=== PATIENT | male | born 1945 | race Caucasian/White ===

== ENCOUNTER 2017-05-04 10:02 | Emergency (ER) | payer MEDICARE, BC, SELFPAY ==
[2017-05-04 10:03] VITALS: BP 97/66; PULSE 67; RESP 16; TEMP 35.3; O2SAT 96; BMI 25.4
[2017-05-04 10:24] VITALS: BP 102/67; BP 106/69; BP 114/69; PULSE 58; PULSE 66; PULSE 70
[2017-05-04 10:55] LABS: Anion Gap 6 (5-15); BUN 16 mg/dL (7-18); BUN/Creat Ratio 13.2 RATIO (10-20); Calcium,Total 8.3 mg/dL (8.5-10.1); Chloride 104 mmol/L (98-107); Creatinine, Serum 1.21 mg/dL (0.70-1.30); EST Glomerular Filtration Rate 63 mL/min (>60); Est Glom Filt Rate - Afr Amer 76 mL/min (>60); Estimated Creatinine Clearance 54.96 ml/min; Glucose 101 mg/dL (74-106); Potassium 4.4 mmol/L (3.5-5.1); Sodium Level 140 mmol/L (136-145)
[2017-05-04 11:15] VITALS: BP 112/68; PULSE 66; RESP 19
--- NOTE | 2017-05-04 11:40 | ED.VISSUMM ---
- ER Visit Summary Date of Service: 05/04/17 Chief Complaint: Near syncope History of Present Illness: The patient is a 71 M who became lightheaded with a sensation of warmth, nausea and cold sweat. Rarely he was pale according to family. They did assess his blood pressure and his systolic was 76. His heart rate was low. He recently saw his PCP and was started on losartan 25 mg because of elevated blood pressure reading at the office. He denies nausea, vomiting diarrhea. He denies any double vision, blurred vision or loss of vision. He does report intermittent headache over the past week or so. He also states he had a viral illness flu. He denies any urologic symptoms. During my exit interview family reports that he has been taking cough syrup. Asked if he had a coughing spell prior to this and he states it was not bad. He denies black or maroon stool. He has no other complaints please read written note Physical Examination: Initial blood pressure was 97/66. Orthostatic vitals were obtained and are unremarkable. Most recent systolic pressure is 116. Head is atraumatic normocephalic. Pupils are equal round reactive. Extraocular muscles are intact. TMs are pearly white with landmarks noted. Nares patent with no drainage. Posterior pharynx without erythema or exudate. Uvula is midline. There is no dysphonia or dysphasia. Trachea is midline. There is no stridor with auscultation of the neck. Heart is regular without murmur, gallop or rub. S1 and S2 are normal. Lungs are clear to auscultation with good movement of air bilaterally. There is no asymmetry, swelling, discoloration, leg vein distention, palpable cords or tenderness along the distribution of the deep venous system. Neuro exam is nonfocal. Test Results: BMP is unremarkable. Orthostatic vital signs are negative. Emergency Department Course and Treatment: Presume this is a vasovagal response. However, in light of the fact that he is placed on a new antihypertensive meds and he does complain of lightheadedness will obtain orthostatic vital signs. Treatment Plan: Continue losartan at night and monitor blood pressure. If blood pressure is above 03/07/1939 recommend follow-up with Dr. Grove and may need smaller dose of losartan or a different hypertensive med. Disposition: Discharged home in stable improved condition with family Impression: 1. Vasovagal near syncopal episode 2. History of hypertension This note was generated with [employer] dictation software. It may contain incorrect words, spelling, and punctuation that were not noted in review of the chart prior to signing ED Disposition - Plan for ED Patient: Disposition: Home or Assisted Living Chief Complaint: Syncope Instructions: ED Syncope Vasovagal Referrals: Jacqueline Grove MD [Primary Care Provider] - 3-5 Days if not improving
[2017-05-04 11:54] VITALS: BP 105/69; PULSE 68; RESP 19; O2SAT 96
== END 2017-05-04 11:55 | disposition home or self-care (01) ==
PROVIDERS: Emergency Provider Emergency Medicine; Family Provider Internal Medicine; PCP Internal Medicine
DX: R55 Syncope and collapse (principal); I10 Essential (primary) hypertension; I25.10 Atherosclerotic heart disease of native coronary artery without angina pectoris; Z86.39 Personal history of other endocrine, nutritional and metabolic disease; Z79.82 Long term (current) use of aspirin; Z79.02 Long term (current) use of antithrombotics/antiplatelets; Z79.899 Other long term (current) drug therapy
CPT/HCPCS: 80048; 99285

== ENCOUNTER 2017-06-27 01:02 | Observation (INO) | payer MEDICARE, BC, SELFPAY ==
[2017-06-27] VITALS (7 sets, daily range): BP systolic 125–163; BP diastolic 80–94; PULSE 54–64; RESP 12–17; TEMP 36.4–36.9; O2SAT 94–99; BMI 27.9; BMI 27.3
--- NOTE | 2017-06-27 01:13 | EKG12_ITS ---
Test Reason : CP Blood Pressure : / mmHG Vent. Rate : 057 BPM Atrial Rate : 057 BPM P-R Int : 172 ms QRS Dur : 112 ms QT Int : 432 ms P-R-T Axes : 068 061 039 degrees QTc Int : 420 ms Poor data quality, interpretation may be adversely affected Sinus bradycardia Low voltage QRS (limb leads) Confirmed by JAZMINE KENT, MIGUEL ([id number]), map editor NEYDA PARSONS ([id number]) on 06/29/2017 10:34:43 AM Referred By: JOVANNY Confirmed By:MIGUEL LUCERO MD
[2017-06-27] MEDS: Aspirin 81 MG TAB.CHEW 324 MG PO (01:18)
--- NOTE | 2017-06-27 01:20 | RAD_ITS ---
STUDY: X-RAY CHEST REASON FOR EXAM: Male, 71 years old. Difficulty breathing, chest tightness. Elevated blood pressure. TECHNIQUE: AP portable chest. COMPARISON: November 08, 2011. FINDINGS: The lungs are clear and expanded. There is no demonstrated pleural abnormality. Normal size heart. Normal mediastinum and jeanine. Normal visualized pulmonary arteries. Normal visualized aortic arch and descending thoracic aorta. Normal visualized thoracic spine. Normal visualized ribs, clavicles, and shoulders. There is no demonstrated abnormality of the visualized soft tissue structures of the upper abdomen. RAD/Chest 1 View (Portable) IMPRESSION: Normal x-ray examination of the chest. Electronically Signed: Oliver Shabazz MD at 1:41 EDT , Service support ,
--- NOTE | 2017-06-27 01:25 | CT_ITS ---
STUDY: CT BRAIN WITHOUT CONTRAST REASON FOR EXAM: Male, 71 years old. Headache, elevated blood pressure, shortness of breath and chest pressure. RADIATION DOSAGE (If Supplied By Facility): CTDIvol = ( 44.99 ) mGy, DLP = ( 779.24 ) mGycm TECHNIQUE: Transaxial CT imaging of the brain was performed without administration of intravenous contrast material. Individualized dose optimization techniques were used for this CT. COMPARISON: None. FINDINGS: Normal soft tissue structures. Normal calvarium. Normal size ventricles and extra-axial spaces for the patient's age. Normal white matter tracts of the cerebral hemispheres. Normal basal ganglia and thalami. Normal brainstem. Normal cerebellum. There is no intracranial hemorrhage. There are no findings of an acute ischemic infarction. 0.8 cm mucous retention cyst medial wall right maxillary sinus. CT/Brain/Head without Contrast IMPRESSION: Normal unenhanced CT scan of the brain. Electronically Signed: Oliver Shabazz MD at 2:29 EDT , Service support ,
[2017-06-27 01:26] LABS: Absolute Neutrophil Count 5.3 X10^3/uL (2.0-7.7); Basophil# 0.03 X10^3/uL; Basophil% 0.4 % (0-1); Eosinophil# 0.44 X10^3/uL; Eosinophils% 5.3 % (0-5); Hematocrit 40.3 % (40-54); Hemoglobin 13.6 g/dl (13.0-16.5); Lymphocyte % 20.7 % (19-41); Mean Corp Hgb Conc 33.7 g/gl (32-36); Mean Corpuscular Hgb 33.1 pg (27.0-32.0); Mean Corpuscular Volume 98.1 fL (80-94); Mean Platelet Vol. 11.7 fl (6.2-12.0); Monocyte# 0.76 X10^3/uL; Monocyte% 9.2 % (0-10); Neutrophil # 5.29 X10^3/uL (2.7-7.7); Neutrophil % 64.3 % (47-70); Platelet Count 142 K/mm3 (150-450); RBC Distribution Width CV 12.9 % (11.6-14.6); RBC Distribution Width SD 45.4 fl (35.1-43.9); Red Blood Count 4.11 M/mm3 (4.6-6.2); White Blood Count 8.2 K/mm3 (4.4-11.0)
[2017-06-27] MEDS: Morphine 4 MG/ML Syringe IV (01:32)
[2017-06-27] MEDS: Ondansetron 4 MG/2 ML Vial IV (01:32)
[2017-06-27 01:33] LABS: POSITIVE COUNT NO; POSITIVE DIFFERENTIAL NO; POSITIVE MORPHOLOGY NO
[2017-06-27 01:39] LABS: Anion Gap 5 (5-15); BUN 16 mg/dL (7-18); BUN/Creat Ratio 15.7 RATIO (10-20); Calcium,Total 8.3 mg/dL (8.5-10.1); Chloride 109 mmol/L (98-107); Creatinine, Serum 1.02 mg/dL (0.70-1.30); EST Glomerular Filtration Rate 77 mL/min (>60); Est Glom Filt Rate - Afr Amer 93 mL/min (>60); Glucose 86 mg/dL (74-106); Potassium 3.7 mmol/L (3.5-5.1); Sodium Level 143 mmol/L (136-145)
--- NOTE | 2017-06-27 02:52 | ED.VISSUMM ---
- ER Visit Summary Date of Service: 06/27/17 Chief Complaint: Chest pain History of Present Illness: The patient is a 71 M presenting with intermittent chest pressure for the past 24 hours. He states currently it is 5 out of 10. He took a nitro at home which helped his symptoms. He has associated shortness of breath. He denies nausea, vomiting, diaphoresis. He also complains of intermittent head pressure as well. He has a history of hypertension, hypercholesterolemia. He has a history of 6 stents. His last stent was 5-6 years ago. Physical Examination: Vitals are stable. Patient is afebrile. Alert no acute distress. HEENT exam is unremarkable. Neck is supple. Lungs are clear and equal bilaterally. Heart is regular and bradycardic Abdomen is soft nontender nondistended. Extremities are unremarkable. Skin is warm and dry. No focal neurologic deficit. Remainder of exam is unremarkable. Emergency Department Course and Treatment: EKG is sinus bradycardia rate of 57 unchanged from previous. CBC, chemistries unremarkable other than platelets 142. Troponin is negative. Chest x-ray shows no acute process. CT head shows no acute process. He was given aspirin on arrival. He is given morphine Zofran with improvement of his pain. On repeat evaluation, he is resting comfortably. Discussed with the hospitalist for admission. Disposition: Admission Impression: Chest pain This note was generated with [employer] dictation software. It may contain incorrect words, spelling, and punctuation that were not noted in review of the chart prior to signing ED Disposition - Plan for ED Patient: Chief Complaint: Chest Pain Referrals: Jacqueline Grove MD [Primary Care Provider] -
--- NOTE | 2017-06-27 04:01 | HP.PCM_ITS ---
Problem List (1) Atypical chest pain Status: Acute (2) BPH (benign prostatic hyperplasia) Status: Chronic (3) CAD (coronary artery disease) Status: Chronic (4) Dyslipidemia Status: Chronic (5) Essential hypertension Status: Chronic History of Present Illness Date of Admission: 06/27/17 Chief Complaint: Chest pain for about 24 hours intermittent The patient is a 71 year old M with history of coronary artery disease status post 6 stent, last one 5-6 years ago and [facility], follows Dr. Garcia came to ER with intermittent chest pain for about 24 hours. Patient woke up in the middle of night along with chest pain and could not breathe, 1 day before yesterday and then he had chest pain intermittently yesterday during daytime. He denies near syncope or syncope or diaphoresis or palpitation. He has healthy lifestyle with no smoking and does horse riding. In ED, EKG shows sinus bradycardia at [address]-T changes. The patient was given IV morphine and Zofran in the ER. He also had mild headache and CT head was done which did not show acute process. [] Past Medical History Past Medical History (Chronic Problems): Chronic Problems BPH (benign prostatic hyperplasia) (Chronic) CAD (coronary artery disease) (Chronic) Essential hypertension (Chronic) Dyslipidemia (Chronic) Allergies Penicillins Allergy (Verified 06/27/17 01:08) Unknown Home Medications: Ambulatory Orders Medication Instructions Recorded Aspirin [Aspirin, Baby] 81 mg PO DAILY@0800 05/04/17 Clopidogrel Bisulfate [Plavix] 75 mg PO DAILY 05/04/17 Losartan Potassium [Cozaar] 25 mg PO DAILY 05/04/17 Tamsulosin HCl [Flomax] 0.4 mg PO DAILY 05/04/17 Co Q-10 06/27/17 Vitamin E 06/27/17 Smoking Status: Never smoker - *Family History Paternal History Items: No pertinent history Review of Systems Constitutional: Denies: Chills, Fever, Weight Change HEENT: Denies: Head Aches, Sinus Congestion, Sinus Drainage Cardiovascular: Reports: Chest Pressure. Denies: Chest Pain, Palpitations Respiratory: Reports: Shortness of Breath. Denies: Cough, Sputum production Gastrointestinal: Denies: Abdominal Pain, Nausea, Vomiting Genitourinary: Denies: Dysuria Musculoskeletal: Denies: Joint Pain, Joint Tenderness Skin: Denies: Rash, Wounds Neurological: Denies: Numbness, Tingling, Focal weakness Psychiatric: Denies: Anxiety, Depression, Homicidal Ideations, Suicidal Ideations Hematologic/ Lymphatic: Denies: Easy Bruising, Easy Bleeding VTE Information - Inpt Only VTE Present on Admission: No VTE Mechan Device Prophylaxis: SCD's VTE Pharm Prophylaxis ordered?: Yes Patient Problems: Active and Suspected Problems Atypical chest pain (Acute) - Physical Exam General: Alert, Oriented x3, Cooperative HEENT: Atraumatic, PERRLA, EOMI, Normocephalic Neck: Supple, No JVD, Negative Carotid Bruits Lungs: Clear to auscultation, Normal air movement, No rhonchi, No wheeze, No rales Cardiovascular: Regular rate, Regular Rhythm, Normal S1, Normal S2, No murmurs Abdomen: Bowel Sounds Present, Soft, Non Tender, Non-Distended Extremities: No edema, Capillary Refill Less than 3 Seconds Skin: No rashes, No breakdown Musculoskeletal: No Tenderness to Palpation of Joints or Extremities Neurological: Cranial nerves II-XII grossly intact Psych/Mental Status: Normal Affect, Appropriate Vital Signs Temp Pulse Resp BP Pulse Ox 97.7 F L 54 L 17 126/84 H 95 06/27/17 01:05 06/27/17 03:47 06/27/17 03:47 06/27/17 03:47 06/27/17 03:47 Oxygen Flow Rate (L/min) 2 Oxygen Delivery Method Nasal Cannula Weight: 183 lb 10.321 oz Body Mass Index (BMI) 27.9 Laboratory Tests Past 24 Hrs 06/27/17 06/27/17 01:05 01:05 WBC 8.2 RBC 4.11 L Hgb 13.6 Hct 40.3 MCV 98.1 H MCH 33.1 H MCHC 33.7 RDW 12.9 RDW Differential 45.4 H Plt Count 142 L MPV 11.7 Immature Gran % (Auto) 0.100 Neut % (Auto) 64.3 Lymph % (Auto) 20.7 [place] % (Auto) 9.2 Eos % (Auto) 5.3 H Baso % (Auto) 0.4 Absolute Neuts (auto) 5.3 Absolute Lymphs (auto) 1.70 Total Counted Not Reportable Sodium 143 Potassium 3.7 Chloride 109 H Carbon Dioxide 29.0 Anion Gap 5 BUN 16 Creatinine 1.02 Estim Creat Clear Calc 65.20 Est GFR (MDRD) Af Amer 93 Est GFR (MDRD) Non-Af 77 BUN/Creatinine Ratio 15.7 Glucose 86 Calcium 8.3 L Troponin I < 0.015 Assessment/Plan Active and Suspected Problems Atypical chest pain (Acute) The patient is a 71 year old M with history of coronary artery disease status post 6 stent, last one 5-6 years ago and [facility], follows Dr. Garcia came to ER with intermittent chest pressure for about 24 hours, localized with no radiation. Patient woke up in the middle of night along with chest pain and could not breathe, 1 day before yesterday and then he had chest pain intermittently yesterday during daytime. He denies near syncope or syncope or diaphoresis or palpitation. He has healthy lifestyle with no smoking and does horse riding. In ED, EKG shows sinus bradycardia at [address]-T changes. First troponin negative. The patient was given IV morphine and Zofran in the ER. He also had mild headache and CT head was done which did not show acute process. 1. Atypical chest pain, possible unstable angina: Patient JORDON risk is 4. Continue aspirin and Plavix. Currently patient chest pain is resolved. Repeat EKG. On ACS protocol with serial cardiac enzymes. If serial troponin enzymes are negative, can have treadmill nuclear stress test. If troponins are positive , can consult shop router. 2. Coronary artery disease status post 6 stent: Patient is on aspirin, Plavix and losartan. I would not start beta-anna as patient has sinus bradycardia. 3. Other comorbidities include hypertension, dyslipidemia, BPH: Home medication reconciliation done. As per the blood pressure at home was high systolic blood pressure 170. In the ER his blood pressure is 126/74. DVT prophylaxis: On heparin 5000 units subcutaneous twice daily and bilateral SCDs Code Visit OBSV E&M: 51271 Initial observation care L3
--- NOTE | 2017-06-27 05:55 | EKG12_ITS ---
Test Reason : AM EKG Blood Pressure : / mmHG Vent. Rate : 055 BPM Atrial Rate : 055 BPM P-R Int : 172 ms QRS Dur : 114 ms QT Int : 438 ms P-R-T Axes : 062 058 040 degrees QTc Int : 419 ms Sinus bradycardia Otherwise normal ECG Confirmed by JAZMINE KENT, MIGUEL ([id number]), associate editor NEYDA PARSONS ([id number]) on 07/04/2017 3:29:09 PM Referred By: BUZZ Confirmed By:MIGUEL LUCERO MD
[2017-06-27] MEDS: Clopidogrel Bisulfate 75 MG Tablet PO (06:04)
[2017-06-27] MEDS: Losartan Potassium 25 MG Tablet PO (06:04)
[2017-06-27 07:59] LABS: Absolute Lymphocyte Count 1.31 X10^3/ul (0.83-4.51); Absolute Neutrophil Count 3.4 X10^3/uL (2.0-7.7); Basophil# 0.03 X10^3/uL; Basophil% 0.5 % (0-1); Eosinophil# 0.37 X10^3/uL; Eosinophils% 6.5 % (0-5); Hematocrit 37.5 % (40-54); Hemoglobin 12.6 g/dl (13.0-16.5); Lymphocyte # 1.31 X10^3/ul (4.0); Mean Corp Hgb Conc 33.6 g/gl (32-36); Mean Corpuscular Hgb 33.1 pg (27.0-32.0); Mean Corpuscular Volume 98.4 fL (80-94); Mean Platelet Vol. 11.7 fl (6.2-12.0); Monocyte# 0.58 X10^3/uL; Monocyte% 10.2 % (0-10); Neutrophil # 3.39 X10^3/uL (2.7-7.7); Neutrophil % 59.6 % (47-70); POSITIVE COUNT NO; POSITIVE DIFFERENTIAL NO; POSITIVE MORPHOLOGY NO; Platelet Count 119 K/mm3 (150-450); RBC Distribution Width CV 13.1 % (11.6-14.6); RBC Distribution Width SD 45.9 fl (35.1-43.9); Red Blood Count 3.81 M/mm3 (4.6-6.2); White Blood Count 5.7 K/mm3 (4.4-11.0)
[2017-06-27 08:21] LABS: Anion Gap 3 (5-15); BUN 13 mg/dL (7-18); Chloride 112 mmol/L (98-107); Cholesterol 109 mg/dL (200); Creatinine, Serum 0.93 mg/dL (0.70-1.30); EST Glomerular Filtration Rate 86 mL/min (>60); Est Glom Filt Rate - Afr Amer 104 mL/min (>60); Estimated Creatinine Clearance 71.51 ml/min; Glucose 86 mg/dL (74-106); High Density Lipoprotein 34 mg/dL; Magnesium 2.3 mg/dL (1.6-2.6); Potassium 4.3 mmol/L (3.5-5.1); Sodium Level 143 mmol/L (136-145); Thyroid Stim Hormone (TSH) 6.91 uIU/mL (0.358-3.74); Triglycerides 87 mg/dL; Very Low Density Lipoprotein 17 mg/dL (5-40)
[2017-06-27 08:46] LABS: International Normalized Ratio 1.2; Prothrombin Time (Protime)PT. 14.7 SECONDS (11.7-14.9)
[2017-06-27 08:47] LABS: Partial Thromboplast Time 29.4 Seconds (24.1-36.2)
--- NOTE | 2017-06-27 10:23 | PCM.DC ---
- Discharge Diagnoses Current Active Problems: Current Active and Chronic Problems Atypical chest pain (Acute) BPH (benign prostatic hyperplasia) (Chronic) You will use the following diet at home:: Cardiac - <2 g sodium daily Your food should be the consistency of: Regular Your liquids should be the consistency of: Regular/Thin Discharge Activity: Return to Normal Activity Allergies/Adverse Reactions: Allergies Penicillins Allergy (Verified 06/27/17 01:08) Unknown Medications to take at Discharge Aspirin [Aspirin, Baby] 81 mg PO DAILY@0800 05/04/17 Clopidogrel Bisulfate [Plavix] 75 mg PO DAILY 05/04/17 Losartan Potassium [Cozaar] 25 mg PO DAILY 05/04/17 Tamsulosin HCl [Flomax] 0.4 mg PO DAILY 05/04/17 Co Q-10 06/27/17 Metoprolol Bajwa/Hydrochlorothiaz [Dutoprol 25-12.5 mg Tablet] 1 each PO 06/27/17 Pravastatin [Pravachol] 20 mg PO QHS 06/27/17 Vitamin E 06/27/17 Vitamin E 1,200 unit PO 06/27/17 Primary Care Physician: Jacqueline Grove MD [Primary Care Provider] - Please follow up with your Primary Care Physician in: 2 weeks Please Follow Up With: Cole Jewell MD When: 1 week Proposed Discharge Date: 06/27/17
--- NOTE | 2017-06-27 10:25 | PCM.DC.SUM ---
Discharge Date and Diagnosis - Problem List Patient Problems: Active and Suspected Problems Atypical chest pain (Acute) Date of Admission: 06/27/17 Date of Discharge: 06/27/17 - Primary Discharge Diagnosis Active and Suspected Problems Atypical chest pain - musculoskeletal CAD - s/p 6 stents Mild thrombocytopenia GERD HLD HTN BPH - Secondary Discharge Diagnosis Chronic Problems BPH (benign prostatic hyperplasia) (Chronic) CAD (coronary artery disease) (Chronic) Essential hypertension (Chronic) Dyslipidemia (Chronic) Hospital Course and Treatment Imaging Results: 06/27/17 05:55 Nuclear Stress Test - Treadmil [NM] AM (NON MEDS) Operations: None Procedures: None Summary of Care Provided: Physical exam on day of discharge: General: Resting comfortably NAD Psych: A/Ox3 normal affect HEENT: PEARRLA AT NC Neck: Supple NT CV: RRR no m/t/r/g/h Resp: CTA Abd: [id number] Soft NT no guarding or rigidity Ext: DP2+= no edema Skin: W/D normal turgor Lymph/Heme: No active bleeding or adenopathy Neuro: CN2-12 intact Hospital course: The patient is a 71 year old M with a hx of CAD with 6 stents prior 6 years ago, pt of Dr. Jewell, hx HLD, HTN, BPH, who presented to the ER with intermittent chest pain over 24 hours. This began while he was sleeping, described as a midsternal tightness with SOB that would come and go for several minutes, no syncope, LH, palpitation, diaphoresis, nausea, or vomiting. He had a negative EKG, neg troponin, negative CXR, negative CT brain. He was admitted to the PCU and placed on cardiac monitoring. He had no events on tele overnight. Trop negative x 3. TSH was elevated, T4 is pending at this time. LDL was at goal - 58. Vital signs are stable. He refused a stress test the next morning and stated that he wanted to go see the [facility] instead as he had his workup in the past there, and that he had been told in the past that a stress test was not a good test and would not be helpful. As he had relief overnight of his chest pain, and he had negative workup otherwise, and continued to refuse a stress test, he was discharged home in stable condition, and was advised to follow up with his PCP and his own comparative sociology professor, Dr. Jewell. This patient was seen by Tyler Rivera PA-C under the supervision of Doctor Scooter. [] Discharge Diet: Low fat/ Low Cholesterol, 2000 mg Sodium Diet Discharge Activity: Return to Normal Activity Home Medications: Medications to take at Discharge Aspirin [Aspirin, Baby] 81 mg PO DAILY@0800 05/04/17 Clopidogrel Bisulfate [Plavix] 75 mg PO DAILY 05/04/17 Losartan Potassium [Cozaar] 25 mg PO DAILY 05/04/17 Tamsulosin HCl [Flomax] 0.4 mg PO DAILY 05/04/17 Co Q-10 06/27/17 Metoprolol Bajwa/Hydrochlorothiaz [Dutoprol 25-12.5 mg Tablet] 1 each PO 06/27/17 Pravastatin [Pravachol] 20 mg PO QHS 06/27/17 Vitamin E 06/27/17 Vitamin E 1,200 unit PO 06/27/17 Primary Care Physician: Jacqueline Grove MD [Primary Care Provider] - Please follow up with your Primary Care Physician in: 2 weeks Please Follow Up With: Cole Jewell MD When: 1 week Medical Necessity - Tobacco Use Smoking Status: Never smoker Meaningful Use Info Meaningful Use Diagnoses (Choose all that apply): None applicable
[2017-06-27 10:35] LABS: T4 Free Direct 0.74 ng/dL (0.76-1.46)
--- NOTE | 2017-06-27 10:36 | DS.PCM_ITS ---
Discharge Date and Diagnosis - Problem List Patient Problems: Active and Suspected Problems Atypical chest pain (Acute) Date of Admission: 06/27/17 Date of Discharge: 06/27/17 - Primary Discharge Diagnosis Active and Suspected Problems Atypical chest pain - musculoskeletal CAD - s/p 6 stents Mild thrombocytopenia GERD HLD HTN BPH - Secondary Discharge Diagnosis Chronic Problems BPH (benign prostatic hyperplasia) (Chronic) CAD (coronary artery disease) (Chronic) Essential hypertension (Chronic) Dyslipidemia (Chronic) Hospital Course and Treatment Imaging Results: 06/27/17 05:55 Nuclear Stress Test - Treadmil [NM] AM (NON MEDS) Operations: None Procedures: None Summary of Care Provided: Physical exam on day of discharge: General: Resting comfortably NAD Psych: A/Ox3 normal affect HEENT: PEARRLA AT NC Neck: Supple NT CV: RRR no m/t/r/g/h Resp: CTA Abd: [id number] Soft NT no guarding or rigidity Ext: DP2+= no edema Skin: W/D normal turgor Lymph/Heme: No active bleeding or adenopathy Neuro: CN2-12 intact Hospital course: The patient is a 71 year old M with a hx of CAD with 6 stents prior 6 years ago , pt of Dr. Jewell, hx HLD, HTN, BPH, who presented to the ER with intermittent chest pain over 24 hours. This began while he was sleeping, described as a midsternal tightness with SOB that would come and go for several minutes, no syncope, LH, palpitation, diaphoresis, nausea, or vomiting. He had a negative EKG, neg troponin, negative CXR, negative CT brain. He was admitted to the PCU and placed on cardiac monitoring. He had no events on tele overnight. Trop negative x 3. TSH was elevated, T4 is pending at this time. LDL was at goal - 58. Vital signs are stable. He refused a stress test the next morning and stated that he wanted to go see the [facility] instead as he had his workup in the past there, and that he had been told in the past that a stress test was not a good test and would not be helpful. As he had relief overnight of his chest pain, and he had negative workup otherwise, and continued to refuse a stress test, he was discharged home in stable condition, and was advised to follow up with his PCP and his own cut press operator, Dr. Jewell. This patient was seen by Tyler Rivera PA-C under the supervision of Doctor Scooter. [] Discharge Diet: Low fat/ Low Cholesterol, 2000 mg Sodium Diet Discharge Activity: Return to Normal Activity Home Medications: Medications to take at Discharge Aspirin [Aspirin, Baby] 81 mg PO DAILY@0800 05/04/17 Clopidogrel Bisulfate [Plavix] 75 mg PO DAILY 05/04/17 Losartan Potassium [Cozaar] 25 mg PO DAILY 05/04/17 Tamsulosin HCl [Flomax] 0.4 mg PO DAILY 05/04/17 Co Q-10 06/27/17 Metoprolol Bajwa/Hydrochlorothiaz [Dutoprol 25-12.5 mg Tablet] 1 each PO 06/27/17 Pravastatin [Pravachol] 20 mg PO QHS 06/27/17 Vitamin E 06/27/17 Vitamin E 1,200 unit PO 06/27/17 Primary Care Physician: Jacqueline Grove MD [Primary Care Provider] - Please follow up with your Primary Care Physician in: 2 weeks Please Follow Up With: Cole Jewell MD When: 1 week Medical Necessity - Tobacco Use Smoking Status: Never smoker Meaningful Use Info Meaningful Use Diagnoses (Choose all that apply): None applicable
== END 2017-06-27 10:25 | disposition home or self-care (01) ==
LOC: ED 03:22 → PCU 03:40
PROVIDERS: Physician Assistant; Admitting Provider Internal Medicine; Emergency Provider Emergency Medicine; Family Provider Internal Medicine; PCP Internal Medicine; Visit Provider Internal Medicine
DX: R07.89 Other chest pain (principal); R06.02 Shortness of breath; R00.1 Bradycardia, unspecified; N40.0 Benign prostatic hyperplasia without lower urinary tract symptoms; I25.10 Atherosclerotic heart disease of native coronary artery without angina pectoris; E78.5 Hyperlipidemia, unspecified; I10 Essential (primary) hypertension; Z95.5 Presence of coronary angioplasty implant and graft; Z79.02 Long term (current) use of antithrombotics/antiplatelets; Z79.899 Other long term (current) drug therapy; Z79.82 Long term (current) use of aspirin; D64.9 Anemia, unspecified
CPT/HCPCS: 36415; 70450; 71045; 80048; 80061; 83735; 84439; 84443; 84484; 85025; 85610; 85730; 93005; 96374; 96375; 99218; 99284; A4216; G0378; J2405